=== PATIENT | female | born 1995 | race Caucasian/White ===

== ENCOUNTER 2019-05-08 12:16 | Outpatient (CLI) | payer MEDICAID, SELFPAY ==
--- NOTE | ~2019-05-08 | US_ITS ---
EXAMINATION: US OB <=14 wk fetus w TV DATE: 05/08/2019 13:31 INDICATION: Evaluate well-being TECHNIQUE: Real-time transabdominal and transvaginal obstetric ultrasound. FINDINGS: No prior studies for comparison. The uterus measures 10.9 x 6.2 x 6.8 cm. There is an intrauterine gestational sac, with pole id entified. The crown rump length measures 1.56 cm, which correlates with a estimated gestational age of 8 weeks 0 days. heart tones are identified measuring 162 BPM. There is a 1.7 cm corpus lut eal cyst of the left ovary. IMPRESSION: 1. SL IUP with an EGA of 8 weeks, 0 days (EDC by current ultrasound of 12/18/2019). Reviewed, dictated and finalized at location A. US RECRUITING COORDINATOR IMPRESSION: 1. SL IUP with an EGA of 8 weeks, 0 days (EDC by current ultrasound of 0).
== END 2019-05-08 12:17 | disposition home or self-care (01) ==
LOC: ANHIMG 12:18
PROVIDERS: Visit Provider Student in an Organized Health Care Education/Training Program
DX: Z32.01 Encounter for pregnancy test, result positive (principal); Z3A.00 Weeks of gestation of pregnancy not specified
CPT/HCPCS: 76801; 76817

== ENCOUNTER 2019-06-01 12:28 | Outpatient (CLI) | payer OTHER, SELFPAY ==
[2019-06-01 13:11] LABS: Basophils Percent Auto 0.3 % (0.2-1.2); Hematocrit 36.5 % (37.0-47.0); Hemoglobin 12.4 g/dL (12.0-15.0); Immature Granulocyte Absolute 0.02 K/mm3 (0.00-0.031); Immature Granulocyte Percent A 0.3 % (0-0.5); Lymphocytes Absolute Auto 1.36 K/mm3 (0.9-3.2); Lymphocytes Percent Auto 18.2 % (18.3-44.2); Mean Corpuscular Hemoglobin 28.9 pg (26-34); Mean Corpuscular Volume 85.1 fl (80-100); Monocytes Absolute Auto 0.4 K/mm3 (0.1-0.6); Monocytes Percent Auto 4.7 % (2.6-8.5); Neutrophils Absolute Auto 5.7 K/mm3 (1.3-6.7); Neutrophils Percent Auto 76.5 % (45.5-73.1); Platelet Count Result 261 k/mm3 (150-375); Red Blood Count 4.29 M/mm3 (4.2-5.4); Red Cell Distribution Width 12.4 % (11.5-14.5); White Blood Count 7.5 K/mm3 (4.5-10.0)
[2019-06-01 13:24] LABS: Add Urine Microscopic? YES; Appearance Urine Clear (Clear); Bacteria Urine Trace /hpf; Bilirubin Urine Negative (Negative); Blood Urine Negative (Negative); Color Urine Straw (Yellow); Glucose Urine UA Negative (Negative); Ketones Urine Negative (Negative); Leukocyte Esterase Ur Trace LEU/UL (NEGATIVE); Mucus Urine Rare /lpf; Nitrate Urine Negative (Negative); Protein Urine Negative (Negative); RBC Urine 0-2 /hpf (0-2); Specific Grav Ur 1.009 (1.001-1.035); Squamous Epithelial Cell Urine Many /hpf (Few); Urobilinogen Urine Negative mg/dL (<2.0)
[2019-06-01 13:40] LABS: Thyroid Stimulating Hormone 0.595 uIU/mL (0.465-4.680)
[2019-06-01 13:41] LABS: Vitamin D 25 Hydroxy 33.2 ng/mL
[2019-06-01 13:42] LABS: Hepatitis B Surface Antigen Negative (Negative); Rubella IgG Antibody 91.3 IU/ML
[2019-06-01 13:58] LABS: HIV 1/2 Ab P24 Ag Result Negative (Negative); Hepatitis C Virus Antibody Negative (Negative)
[2019-06-04 09:40] LABS: Rapid Plasma Reagin Non-Reactive (NonReactive)
[2019-06-08 10:04] LABS: Hematocrit 39.7 % (35.0-45.0); Hemoglobin 12.9 g/dL (11.7-15.5); MCH 29.8 pg (27.0-33.0); Red Blood Cell Count 4.32 Mill/uL (3.80-5.10)
== END 2019-06-01 12:29 | disposition home or self-care (01) ==
PROVIDERS: Visit Provider Student in an Organized Health Care Education/Training Program
DX: Z34.90 Encounter for supervision of normal pregnancy, unspecified, unspecified trimester (principal)
CPT/HCPCS: 36415; 81001; 82306; 83021; 84443; 85025; 86592; 86703; 86762; 86787; 86803; 86900; 86901; 87086; 87340; G0432

== ENCOUNTER 2020-02-10 14:49 | Emergency (ER) | payer OTHER, SELFPAY ==
--- NOTE | ~2020-02-10 | XR_ITS ---
EXAMINATION: XR ankle RT min 3V DATE: 02/10/2020 15:14 INDICATION: Lateral right ankle pain post fall TECHNIQUE: Anteroposterior, oblique, mortise, and lateral views of the right ankle were obtained. COMPARISON: None. FINDINGS: There is a nondisplaced fracture extending from medial to lateral across the neck of the talus with m ild comminution and minimal displacement at the lateral process. Unclear whether is extension to the articular surface of the subtalar joint. There is also a mildly displaced fracture plane across the p osterior process of the talus. No fracture of the talar dome which remains normally located within th e congruent ankle mortise. No fracture of the distal tibia or fibula. Irregular sharp transition to a region of lucency along the posterior aspect of the articular surface of the calcaneal side of the t he posterior facet of the subtalar joint raising suspicion for additional fracture. Normal variant os supra naviculare. Bones and joint spaces in the visualized midfoot are unremarkable. Soft tissue swe lling about the right ankle both medially and laterally. IMPRESSION: 1. Comminuted fractures of the talus and possible small fracture along the subtalar posterior facet o f the calcaneus. Could consider CT for more definitive determination. Reviewed, dictated and finalized at location H. ALLATION COORDINATOR IMPRESSION: 1. Comminuted fractures of the talus and possible small fracture along the subt alar posterior facet of the calcaneus. Could consider CT for more definitive de termination.
--- NOTE | 2020-02-10 14:55 | ED.LOWEXIN ---
HPI - Extremity Injury (Lower) General Chief Complaint: Extremity Injury, Lower Stated Complaint: right ankle pain fell Time Seen by Provider: 02/10/20 15:00 Source: patient and RN notes reviewed Mode of arrival: ambulatory Limitations: no limitations History of Present Illness HPI Narrative: 24 old female presents with concern for right ankle injury. Reports she fell on stairs last night. Reports she has been using ibuprofen for pain. Reports she has been hopping and not bearing weight on the extremity. Denies any decreased sensation, strength in the digits of the foot. MD complaint: ankle injury Related Data Allergies Allergy/AdvReac Type Severity Reaction Status Date / Time fentanyl Allergy Rash Verified 02/10/20 15:19 Review of Systems Review of Systems: Narrative: CONSTITUTIONAL: Denies malaise, chills, sweats, or fever. CARDIOVASCULAR: Denies chest pain, palpitations RESPIRATORY: Denies cough or dyspnea. SKIN: Denies laceration, abrasion MUSCULOSKELETAL: Reports right ankle pain and swelling NEUROLOGIC: Denies numbness, weakness All systems reviewed & are unremarkable except as noted in HPI and below PMFSH Past Medical History Medical History (Updated 02/10/20 @ 15:39 by Sharda Delgado NP) Vaginal delivery Family History Family History Mother Hypertension Social History Social History Smoking status: Never smoker Comments At time of signature, agree with nursing past medical, surgical, social and family history. There is no relevant family history pertinent to the presenting complaint Exam Narrative: Exam Narrative: GENERAL: Well-appearing, well-nourished, and in no acute distress. HEAD: Normocephalic, atraumatic. EYES: PERRLA, conjunctivae clear NECK: Supple. CHEST: Speaks in full sentences. No respiratory distress. HEART: Regular rate and rhythm. Normal and equal peripheral pulses. EXTREMITIES: Right ankle, foot, digits has normal sensation. Limited ankle range of motion due to swelling and pain. Moderate circumferential edema, no ecchymosis. 5/5 strength with digit flexion and extension. Normal sensation with sensitivity to light touch and pain. Dorsal tenderness. No open wounds, no skin tenting, no devitalized tissue or atrophy, no trophic changes, no obvious deformity, alignment normal, nearby joints and structures intact. Distal pulses palpable and equal bilaterally, skin warm, dry, pink. Digit capillary refill less than 3 seconds, dorsal capillary refill 4 seconds SKIN: Warm, dry, no rash. NEURO: Alert and oriented x3. PSYCH: Normal mood and affect Course Course Emergency Course: Consulted with Dr. Burnham who referred patient to [facility]. Consulted with Dr. Lucas Villasenor at [facility], Dr. Villasenor reviewed images. Dr. Villasenor suggested patient be seen in the clinic this week, patient given referral information. Patient is aware of diagnosis, understands and agrees to treatment plan. Anticipatory guidance given. Patient agrees to follow-up as directed and is aware of reasons to seek care at the emergency department. Portions of this record may have been created with voice recognition software Vital Signs Vital signs: Vital Signs Temperature 98.2 F 02/10/20 14:57 Pulse Rate 71 02/10/20 14:57 Respiratory Rate 16 02/10/20 14:57 Blood Pressure 125/73 02/10/20 14:57 Pulse Oximetry 99 02/10/20 14:57 Temperature 98.2 F 02/10/20 14:57 Pulse Rate 71 02/10/20 14:57 Respiratory Rate 16 02/10/20 14:57 Blood Pressure 125/73 02/10/20 14:57 Pulse Oximetry 99 02/10/20 14:57 Reviewed. Procedures Orthopedic Splinting/Casting Injury #1: Splinting/Casting Date: 02/10/20 Side: right Lower Extremity Injury Location: ankle Lower Extremity Immobilizer: posterior splint Splint: customized i
[2020-02-10 14:57] VITALS: BP 125/73; PULSE 71; RESP 16; TEMP 36.8; O2SAT 99
--- NOTE | 2020-02-10 15:32 | PC.NURSE ---
1535-- GEOPHYSICAL MANAGER talking to Dr Valdez, our ortho health administration teacher, who suggest we call [facility].
--- NOTE | 2020-02-10 15:40 | PC.NURSE ---
1539-- GRAPHIC DESIGN MANAGER talked to gasper Hankins who the hospital embossing press operator at [facility] connected me with.
== END 2020-02-10 16:33 | disposition home or self-care (01) ==
PROVIDERS: Emergency Provider Nurse Practitioner
DX: S92.114A Nondisplaced fracture of neck of right talus, initial encounter for closed fracture (principal); W10.9XXA Fall (on) (from) unspecified stairs and steps, initial encounter
CPT/HCPCS: 29515; 73610; 99214; G0463

== ENCOUNTER 2022-09-06 12:50 | Emergency (ER) | payer OTHER, SELFPAY ==
[2022-09-06 13:00] VITALS: BP 125/73; PULSE 62; RESP 14; TEMP 36.6; O2SAT 100
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
== END 2022-09-06 14:03 | disposition home or self-care (01) ==
PROVIDERS: Emergency Provider Nurse Practitioner Family
DX: S01.01XD Laceration without foreign body of scalp, subsequent encounter (principal); Y00.XXXD Assault by blunt object, subsequent encounter
CPT/HCPCS: 99211; G0463